=== PATIENT | male | born 1945 | race African-American/Black ===

== ENCOUNTER 2020-09-29 19:20 | Emergency (ER) | payer MEDICARE, OTHER ==
[2020-09-29] MEDS ORDERED: Nitroglycerin 0.4 MG TAB (25 Tab Bottle) ONE (19:41)
[2020-09-29] MEDS ORDERED: Aspirin Chewable 81 MG TAB ONE (19:41)
[2020-09-29 19:46] LABS: #Eosinphils 0.1 thou/uL (0.0-0.7); #Monocytes 0.3 thou/uL (0.11-0.59); #Neutrophils 5.4 thou/uL (1.40-6.50); %Basophils 0.5 % (0.0-1.0); %Eosinophils 0.9 % (0.0-10.0); %Lymphocytes 25.4 % (21.0-51.0); %Monocytes 3.7 % (0.0-10.0); %Neutrophils 69.5 % (42.0-75.0); Hemoglobin 16.1 g/dL (14.0-18.0); Mean Corpuscular HGB CONC 31.2 g/dL (32.0-36.0); Mean Corpuscular Hemoglobin 27.2 pg (27.0-31.0); Mean Corpuscular Volume 87.2 fL (78.0-98.0); Mean Platelet Volume 8.4 fL (7.4-10.4); Platelet Count 173 thou/uL (130-400); RBC Distribution Width 13.5 % (11.5-14.5); White Blood Cell (WBC) Count 7.8 thou/uL (4.8-10.8)
[2020-09-29] MEDS ORDERED: Sodium Chloride 0.9% 500 ML ONE ×2 (19:51→20:08)
[2020-09-29 19:54] LABS: INR-International Normal Ratio 1.4; PTT 37.7 sec (22.9-36.1); Prothrombin Time 17.2 sec (12.0-14.7)
--- NOTE | 2020-09-29 19:54 | RAD ---
Portable frontal chest radiograph: 09/29/2020 COMPARISON: 06/20/2019 HISTORY: Chest pain FINDINGS: Stable linear interstitial density in the perihilar regions. Stable prominence of the cardi ac silhouette and stable vascular calcification of the aortic arch. No focal consolidation or alveolar edema. IMPRESSION: Stable chest radiograph.
[2020-09-29 20:02] LABS: ALT (SGPT) 36 U/L (8-55); AST (SGOT) 55 U/L (5-34); Alkaline Phosphatase 68 U/L (40-110); Anion Gap 13 mmol/L (10-20); BUN (Urea Nitrogen) 19 mg/dL (8.4-25.7); Bilirubin, Total 0.5 mg/dL (0.2-1.2); Calc. Creatinine Clearance 0 mL/min (70-130); Carbon Dioxide 26 mmol/L (23-31); Chloride 100 mmol/L (98-107); Globulin 3.1 g/dL (2.4-3.5); Glucose 167 mg/dL (83-110); Potassium 4.3 mmol/L (3.5-5.1); Protein, Total 7.1 g/dL (5.8-8.1); Sodium 135 mmol/L (136-145)
== END 2020-09-29 22:41 | disposition short-term general hospital (02) ==
LOC: NAV ERS 19:20
DX: I48.92 Unspecified atrial flutter (principal); I25.10 Atherosclerotic heart disease of native coronary artery without angina pectoris; I25.2 Old myocardial infarction; E11.9 Type 2 diabetes mellitus without complications; E78.00 Pure hypercholesterolemia, unspecified; E78.5 Hyperlipidemia, unspecified; J44.9 Chronic obstructive pulmonary disease, unspecified; I10 Essential (primary) hypertension; Z87.891 Personal history of nicotine dependence; Z79.899 Other long term (current) drug therapy
CPT/HCPCS: 71045; 80053; 83880; 84484; 85025; 85610; 85730; 93005; 94760; 96374; J7030